=== PATIENT | female | born 1965 | race Caucasian/White ===

== ENCOUNTER 2019-03-16 06:03 | Day surgery (SDC) | payer BC ==
[2019-03-16] MEDS ORDERED: DIPRIVAN 200 MG/20 ML IV ONE (06:04)
[2019-03-16] MEDS ORDERED: Lactated Ringers 1,000 ML IV SCH (06:30)
[2019-03-16 09:02] VITALS: O2SAT 96
[2019-03-16 09:14] VITALS: BP 132/74; PULSE 63
--- NOTE | 2019-03-16 11:41 | OP ---
SURGERY DATE/TIME: 03/16/2019 0757 PREOPERATIVE DIAGNOSIS: Positive Cologuard. POSTOPERATIVE DIAGNOSIS: Normal colon. PROCEDURE: Colonoscopy. SURGEON: Dr. Pavon. ANESTHESIA: MAC. Medications given by anesthesia department. HISTORY: The patient is a 53 year-old white female presenting now for colonoscopic evaluation. She had a positive Cologuard. She has never had a colonoscopy previously. The patient was appraised of the risks of the procedure including the risk of perforation, phlebitis, untoward reaction to medication, bleeding and missed lesions. The patient verbalized her understanding and desired to have the procedure performed. DESCRIPTION OF PROCEDURE: The patient given the medications by the anesthesia department. She had continuous pulse oximetry, ECG monitoring, intermittent blood pressure monitoring and tidal CO2 monitoring during the examination. She was placed in the left lateral decubitus position. A digital rectal examination was performed and revealed normal anal sphincter tone and no masses. The flexible Olympus pediatric colonoscope was used to intubate the rectum. A view of the colon was developed sequentially to the cecum. Upon insertion and withdrawal, including a retroflex view in the rectum, no mucosal lesions were encountered. The scope was removed from the patient who tolerated the procedure well and was sent back to OP recovery in good condition. The prep was noted to be fair to good.
== END 2019-03-16 09:20 | disposition home or self-care (01) ==
LOC: SDC 06:03
PROVIDERS: ATTEND Family Medicine
DX: Z12.11 Encounter for screening for malignant neoplasm of colon (principal)
CPT/HCPCS: J2704

== ENCOUNTER 2021-09-14 07:59 | Day surgery (SDC) | payer BC ==
[2021-09-14] MEDS ORDERED: Depo-Medrol 40 MG/ML IM ONE (08:00)
[2021-09-14] MEDS ORDERED: BUPIVACAINE 0.5% VIAL IJ ONE (08:00)
[2021-09-14] MEDS ORDERED: DIPRIVAN 200 MG/20 ML IV ONE (09:17)
--- NOTE | 2021-09-14 09:47 | XRAY ---
Indication: Left SI joint injection. Intraoperative fluoroscopy provided for 12 seconds. 2 digital spot image submitted for interpretation demonstrates posterior needle tip projecting over the inferior left SI joint. Correlate with intraoperative findings/report.
[2021-09-14] MEDS ORDERED: Lactated Ringers 1,000 ML IV ONE (10:11)
--- NOTE | 2021-09-14 10:40 | XRAY ---
12 seconds fluoroscopy time in surgery for injection of the left SI joint.
== END 2021-09-14 09:50 | disposition home or self-care (01) ==
LOC: SDC-PAIN 07:59
PROVIDERS: ATTEND Psychiatry & Neurology Pain Medicine
DX: M46.1 Sacroiliitis, not elsewhere classified (principal); Z79.899 Other long term (current) drug therapy
CPT/HCPCS: 27096; 72020; 77002; J1030; J2704; G0260

== ENCOUNTER 2021-12-06 13:37 | Day surgery (SDC) | payer BC ==
[2021-12-06] MEDS ORDERED: Xylocaine 1% Vial 30 ML PF IJ ONE (15:45)
[2021-12-06] MEDS ORDERED: Depo-Medrol 40 MG/ML IM ONE (15:45)
[2021-12-06] MEDS ORDERED: BUPIVACAINE 0.5% VIAL IJ ONE (15:45)
[2021-12-06] MEDS ORDERED: Lactated Ringers 1,000 ML IV ONE (16:14)
--- NOTE | 2021-12-06 20:41 | XRAY ---
Indication: Left hip injection. Intraoperative fluoroscopy provided for 20 seconds. Single digital spot image submitted for interpretation demonstrates needle tip projecting lateral to the left femur neck. Small amount of contrast injected for needle tip placement. Correlate with intraoperative findings/report.
--- NOTE | 2021-12-07 08:57 | XRAY ---
20 seconds fluoroscopy time in surgery for intra-articular injection of the left hip.
== END 2021-12-06 16:49 | disposition home or self-care (01) ==
LOC: SDC-PAIN 13:37
PROVIDERS: ATTEND Psychiatry & Neurology Pain Medicine
DX: M16.12 Unilateral primary osteoarthritis, left hip (principal); Z79.899 Other long term (current) drug therapy
CPT/HCPCS: 20610; 73501; 77002; J1030; J2001; Q9966

== ENCOUNTER 2022-02-21 15:29 | Day surgery (SDC) | payer BC ==
[2022-02-21] MEDS ORDERED: Xylocaine 1% Vial 30 ML PF IJ ONE (15:30)
[2022-02-21] MEDS ORDERED: Depo-Medrol 40 MG/ML IM ONE (15:30)
[2022-02-21] MEDS ORDERED: Marcaine Mpf 0.5% Vial 30 Ml IJ ONE (15:30)
--- NOTE | 2022-02-21 19:48 | XRAY ---
Indication: Left SI joint and left hip injection. Intraoperative fluoroscopy provided for 27 seconds. 4 digital spot image obtained prone submitted for interpretation demonstrates posterior needle tip projecting over the inferior left SI joint. Second needle tip lateral to the left femur neck with small amount of contrast injected for needle tip placement. Correlate with intraoperative findings/report.
--- NOTE | 2022-02-22 08:55 | XRAY ---
27 seconds fluoroscopy time in surgery for injections of the left SI joint and intra-articular joint space of the left hip.
== END 2022-02-21 17:55 | disposition home or self-care (01) ==
LOC: SDC-PAIN 15:29
PROVIDERS: ATTEND Psychiatry & Neurology Pain Medicine
DX: M46.1 Sacroiliitis, not elsewhere classified (principal); M16.12 Unilateral primary osteoarthritis, left hip; Z79.899 Other long term (current) drug therapy
CPT/HCPCS: 20610; 27096; 73502; 77002; J1030; J2001; Q9966; G0260

== ENCOUNTER 2022-07-04 15:36 | Day surgery (SDC) | payer BC ==
[2022-07-04] MEDS ORDERED: Depo-Medrol 40 MG/ML IM ONE (15:37)
[2022-07-04] MEDS ORDERED: XYLOCAINE-MPF 1% 5ML SDV IJ ONE (15:37)
[2022-07-04] MEDS ORDERED: Marcaine Mpf 0.5% Vial 30 Ml IJ ONE (15:37)
--- NOTE | 2022-07-04 19:49 | XRAY ---
Indication: Left SI joint and left hip injections. Intraoperative fluoroscopy provided for 1 minute 1 second. 3 digital spot images obtained prone submitted for interpretation demonstrates posterior needle tip projecting over the left SI joint. Second needle tip lateral to the left femur neck with small amount of contrast injected for needle tip placement. Correlate with intraoperative findings/report.
--- NOTE | 2022-07-05 10:58 | XRAY ---
61 seconds of fluoroscopy was used in surgery for a left SI joint injection and a left hip intra-articular injection.
== END 2022-07-04 17:55 | disposition home or self-care (01) ==
LOC: SDC-PAIN 15:36
PROVIDERS: ATTEND Psychiatry & Neurology Pain Medicine
DX: M46.1 Sacroiliitis, not elsewhere classified (principal); M16.12 Unilateral primary osteoarthritis, left hip; Z79.899 Other long term (current) drug therapy
CPT/HCPCS: 20610; 27096; 73501; 77002; J1030; Q9966; G0260